=== PATIENT | male | born 1980 | race Caucasian/White ===

== ENCOUNTER 2017-05-11 22:27 | Emergency (ER) | payer OTHER ==
[~2017-05-11] VITALS: Ht 177.8 cm; Wt 82.3 kg
[2017-05-12 00:40] VITALS: BP 132/73
== END 2017-05-12 00:40 | disposition home or self-care (01) ==
LOC: EME 22:27 → TRA 22:27
PROC: 0HQ1XZZ Repair Face Skin, External Approach (ICD-10-PCS; principal; 2017-05-11)
DX: S01.81XA Laceration without foreign body of other part of head, initial encounter (principal); V86.99XA Unspecified occupant of other special all-terrain or other off-road motor vehicle injured in nontraffic accident, initial encounter
CPT/HCPCS: 70450; 99281; 99284